=== PATIENT | male | born 1950 | race Caucasian/White ===

== ENCOUNTER 2019-01-31 02:38 | Observation (INO) | payer MEDICARE, BC ==
[~2019-01-31] VITALS: Ht 165.1 cm; Wt 90.0 kg
[~2019-01-31 02:38] MED LIST: LISI40TA4 PO; OMEP20CA11 PO
[2019-01-31] MEDS ORDERED: normal saline 1000ML IV soln IVB STA (02:51)
[2019-01-31] MEDS ORDERED: diphenhydrAMINE 50 mg/ml inj IV ONE (02:55)
[2019-01-31] MEDS ORDERED: famotidine/PF 10 mg/ml inj IV ONE (02:55)
[2019-01-31] MEDS ORDERED: tranexamic acid 100mg/ml inj. IV ONE (02:55)
[2019-01-31] MEDS ORDERED: methylPREDNISolone sod succ 125mg/2ml vial IV ONE (02:55)
[2019-01-31 04:08] VITALS: BP 141/78
[2019-01-31 04:17] VITALS: BP 139/82
[2019-01-31] MEDS ORDERED: TERA10CA4 PO (06:03)
[2019-01-31] MEDS ORDERED: LOVA20TA2 PO (06:03)
[2019-01-31] MEDS ORDERED: OMEP40CA13 PO (06:03)
--- NOTE | 2019-01-31 06:44 | NUR ---
PT SITTING UP IN BED, APPEARS TO BE COMFORTABLE, DAUGHTER AT BEDSIDE, PT MOVES IN BED ADLIB, A&OX 4, ORIENTED PT TO CALL LIGHT.
[2019-01-31] MEDS ORDERED: magnesium hydroxide 30ml (MOM) UD suspension PO PRN (07:15)
[2019-01-31] MEDS ORDERED: mag hydrox/Alum hydrox/simeth 30ml oral suspension PO PRN (07:15)
[2019-01-31] MEDS ORDERED: acetaminophen 325mg tablet PO PRN ×2 (07:15)
[2019-01-31] MEDS ORDERED: morphine 2 MG/ML inj. syringe IV PRN ×2 (07:15)
[2019-01-31] MEDS ORDERED: HYDROcodone/acetaminophen 5mg/325mg tablet PO PRN (07:15)
[2019-01-31] MEDS ORDERED: ondansetron/PF 4mg/2ml inj IV PRN (07:15)
--- NOTE | 2019-01-31 07:18 | NUR ---
PT ASKING FOR BREAKFAST TRAY, ORDERS ARE IN FROM [facility], MEAL TRAY FORM FAXED TO DIETARY BY ANNE CUNNINGHAM
[2019-01-31] MEDS ORDERED: TERAZOSIN HCL PO SCH (08:00)
[2019-01-31] MEDS: famotidine 20mg tablet PO SCH ×2 (08:11→20:45)
[2019-01-31] MEDS: diphenhydrAMINE 50 mg/ml inj IV SCH ×3 (08:11→20:45)
[2019-01-31] MEDS: atorvastatin 10mg tablet PO SCH (08:11)
[2019-01-31] MEDS: pantoprazole 40mg Tablet.DR PO SCH (08:11)
[2019-01-31] MEDS: dexamethasone sod phosphate 10mg/ml inj IV SCH ×4 (08:12→20:45)
[2019-01-31] MEDS ORDERED: LISI40TA4 PO (09:18)
[2019-01-31 11:00] VITALS: BP 126/69
[2019-01-31 18:00] VITALS: BP 138/71
--- NOTE | 2019-01-31 18:05 | NUR ---
Patient in room ADAM 346. I have received report from KATYA Looney and had the opportunity to ask questions and assume patient care.
[2019-01-31] MEDS ORDERED: terazosin 5mg capsule PO SCH (21:00)
[2019-02-01] VITALS: BP 125/66
[2019-02-01] MEDS: diphenhydrAMINE 50 mg/ml inj IV SCH ×2 (02:23→08:38)
[2019-02-01] MEDS: dexamethasone sod phosphate 10mg/ml inj IV SCH ×2 (02:23→08:38)
--- NOTE | 2019-02-01 06:08 | NUR ---
Problems reprioritized. Patient report given, questions answered & plan of care reviewed with KATYA Looney.
[2019-02-01 07:00] VITALS: BP 128/68
[2019-02-01] MEDS: pantoprazole 40mg Tablet.DR PO SCH (08:35)
[2019-02-01] MEDS: famotidine 20mg tablet PO SCH (08:35)
[2019-02-01] MEDS: atorvastatin 10mg tablet PO SCH (08:35)
== END 2019-02-01 10:30 | disposition home or self-care (01) ==
LOC: ER 02:39 → INTOOBSV 08:22 → SUR 3N 08:22 → CMPBEDREQ 19:49
PROVIDERS: ADMIT Internal Medicine; ATTEND Internal Medicine
DX: T46.4X5A Adverse effect of angiotensin-converting-enzyme inhibitors, initial encounter (principal); T78.3XXA Angioneurotic edema, initial encounter; I10 Essential (primary) hypertension; E78.5 Hyperlipidemia, unspecified; Y93.89 Activity, other specified; Y92.89 Other specified places as the place of occurrence of the external cause
CPT/HCPCS: 36415; 86885; 86900; 86901; 87081; 96374; 96375; 96376; 99284; G0378; J1100; J1200; J2930; J3490; P9059

== ENCOUNTER 2019-04-12 12:16 | Emergency (ER) | payer MEDICARE, BC ==
[~2019-04-12] VITALS: Ht 165.1 cm; Wt 100.0 kg
[~2019-04-12 12:16] MED LIST changes: -LISI40TA4 PO; +LOVA20TA2 PO; -OMEP20CA11 PO; +OMEP40CA13 PO; +TERA10CA4 PO; +niCARDipine in NS 40mg/200ml (0.2mg/ml) IVPB IV ONE
[2019-04-12] MEDS ORDERED: normal saline 1000ML IV soln IVB ONE (12:20)
[2019-04-12] MEDS ORDERED: iohexol 350MG/ML 100ml bottle IV ONE (12:29)
--- NOTE | 2019-04-12 12:29 | NUR ---
Dr. Ford at bedside.
--- NOTE | 2019-04-12 12:58 | NUR ---
breaking primary RN, pt is in CT
--- NOTE | 2019-04-12 13:10 | NUR ---
pt is back in room
[2019-04-12] MEDS ORDERED: niCARdipine I.V. 50 MG in normal saline 250ml IV soln 230 ML IV SCH (13:25)
[2019-04-12] MEDS ORDERED: niCARDipine-NS 40mg/200ml IVPB 200 ML IV SCH (13:40)
--- NOTE | 2019-04-12 13:51 | NUR ---
CALLED REPORT TO MATEO MACHADO SPOKE TO VIOLETTE ALDANA.
--- NOTE | 2019-04-12 13:57 | NUR ---
ems here to transport patient to [facility].
[2019-04-12 14:00] VITALS: BP 117/88
[2019-04-12 14:01] LABS: BASOPHILS % (AUTO) 0.2 % (0-1); EOSINOPHILS % (AUTO) 0.1 % (0-6); HEMOGLOBIN 15.4 g/dl (14.0-17.9); LYMPHOCYTES # (AUTO) 0.6 X10'3 (1.1-4.8); LYMPHOCYTES % (AUTO) 7.2 % (21-51); MEAN CORPUSCULAR HEMOGLOBIN 30.9 PG (27.0-31.0); MEAN CORPUSCULAR HGB CONC 34.2 g/dL (33.0-36.5); MEAN CORPUSCULAR VOLUME 90.1 FL (78-98); MEAN PLATELET VOLUME 6.3 FL (7.4-10.4); MONOCYTES # (AUTO) 0.3 X10'3 (0-0.9); MONOCYTES % (AUTO) 3.3 % (2-12); NEUTROPHILS # (AUTO) 7.7 X10'3 (1.8-7.7); NEUTROPHILS % (AUTO) 89.2 % (42-75); PLATELET COUNT 169 X10'3 (140-440); RED CELL DISTRIBUTION WIDTH 13.7 % (11.5-14.5); WHITE BLOOD COUNT 8.6 X10'3 (4.5-11.0)
[2019-04-12 14:06] LABS: ALANINE AMINOTRANSFERASE 23 U/L (12-78); ALBUMIN 3.9 G/DL (3.4-5.0); ALBUMIN/GLOBULIN RATIO 1.2 (1.1-1.5); ALKALINE PHOSPHATASE 88 IU/L (46-116); ANION GAP 9 (8-16); ASPARTATE AMINO TRANSFERASE 18 U/L (10-37); BILIRUBIN,TOTAL 0.5 MG/DL (0.1-1.0); BLOOD UREA NITROGEN 14 MG/DL (7-18); BUN/CREATININE RATIO 11.2 (5.4-32.0); CALCIUM 8.2 MG/DL (8.5-10.1); CHLORIDE 106 MMOL/L (99-107); CREATININE 1.25 MG/DL (0.60-1.10); GLUCOSE 152 MG/DL (70-104); POTASSIUM 4.4 MMOL/L (3.5-5.1); SODIUM 141 MMOL/L (135-145); TOTAL CARBON DIOXIDE 25.9 MMOL/L (24-32); TOTAL PROTEIN 7.1 G/DL (6.4-8.2); eGFR 57 ML/MIN
== END 2019-04-12 14:00 | disposition short-term general hospital (02) ==
LOC: ER 12:16
DX: I62.9 Nontraumatic intracranial hemorrhage, unspecified (principal); I10 Essential (primary) hypertension; Z88.5 Allergy status to narcotic agent; Z88.8 Allergy status to other drugs, medicaments and biological substances; Z79.899 Other long term (current) drug therapy
CPT/HCPCS: 36415; 70450; 80053; 84484; 85025; 93005; 96365; 99285; J7040; Q9967